=== PATIENT | female | born 1995 | race Caucasian/White ===

== ENCOUNTER 2022-01-04 18:51 | Emergency (ER) | payer OTHER, BC, SELFPAY ==
[2022-01-04 18:51] VITALS: BP 122/85; PULSE 78; RESP 18; TEMP 36.4; O2SAT 96; BMI 26.9
[2022-01-04 20:25] LABS: Bedside Glucose 89 mg/dL (74-106)
--- NOTE | 2022-01-04 20:35 | RAD_ITS ---
STUDY: X-RAY - RIGHT TIBIA AND FIBULA REASON FOR EXAM: Female, 26 years old. injury TECHNIQUE: 2 view(s) of the tibia and fibula were obtained. COMPARISON: None. FINDINGS: Normal visualized tibia. Normal visualized fibula. The soft tissue structures are unremarkable. RAD/Tibia & Fibula 2 Views IMPRESSION: Normal x-ray examination of the tibia and fibula. Electronically Signed: Chepe Gardner MD at 22:34 EDT ,
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
[2022-01-04] MEDS: Ondansetron 4 MG/2 ML Vial IV (20:42)
[2022-01-04] MEDS: Morphine 4 MG/ML Syringe IV (20:42)
--- NOTE | 2022-01-04 20:43 | RAD_ITS ---
STUDY: X-RAY - CERVICAL SPINE REASON FOR EXAM: Female, 26 years old. injury TECHNIQUE: 4 view(s) of the cervical spine were obtained. COMPARISON: None FINDINGS: Normal anterior atlantoaxial articulation. Normal odontoid process. Straightening of the cervical curvature possibly due to muscle spasm. Normal vertebral bodies and endplates. Normal disc space heights. Normal visualized intervertebral neuroforamina. The soft tissue structures are unremarkable. RAD/Cerv Spine 2 or 3 Views IMPRESSION: Straightening of the normal cervical curvature possibly due to muscle spasm otherwise normal unenhanced CT Electronically Signed: Chepe Gardner MD at 22:37 EDT ,
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
== END 2022-01-04 23:27 | disposition home or self-care (01) ==
PROVIDERS: Emergency Provider Emergency Medicine; Visit Provider Emergency Medicine
DX: S16.1XXA Strain of muscle, fascia and tendon at neck level, initial encounter (principal); S81.832A Puncture wound without foreign body, left lower leg, initial encounter; W25.XXXA Contact with sharp glass, initial encounter; V43.52XA Car driver injured in collision with other type car in traffic accident, initial encounter; M79.604 Pain in right leg; S20.20XA Contusion of thorax, unspecified, initial encounter; S60.512A Abrasion of left hand, initial encounter; M25.512 Pain in left shoulder; F32.A Depression, unspecified
CPT/HCPCS: 71046; 72040; 73130; 73590; 82962; 99284; J2405